=== PATIENT | female | born 1980 | race American Indian/Alaskan Native ===

== ENCOUNTER 2016-04-17 19:44 | Emergency (ER) | payer MEDICAID ==
[2016-04-17 21:42] LABS: Basophils % (Auto) 0.4 % (0.0-1.8); Eosinophils % (Auto) 0.6 % (0.0-4.3); Hematocrit 29.9 % (30.3-42.9); Hemoglobin 9.4 gm/dl (10.1-14.3); Mean Corpuscular HGB Conc 31 % (30-34); Mean Corpuscular Volume 82 fl (79-97); Platelet Count 327 K/mm3 (140-440); Red Blood Count 3.66 M/mm3 (3.65-5.03); Red Cell Distribution Width 15.9 % (13.2-15.2); White Blood Count 11.2 K/mm3 (4.5-11.0)
[2016-04-17 21:44] LABS: Mean Corpuscular Hemoglobin 26 pg (28-32)
[2016-04-18 01:28] VITALS: BP 134/76
--- NOTE | 2016-04-20 18:56 | ED Elopement Review ---
ED Pt Elopement review - Results review Lab results: Laboratory Tests 04/17/16 04/17/16 04/17/16 21:09 21:09 21:09 WBC 11.2 H RBC 3.66 Hgb 9.4 L Hct 29.9 L MCV 82 MCH 26 L MCHC 31 RDW 15.9 H Plt Count 327 Lymph % (Auto) 20.2 [place] % (Auto) 7.2 Eos % (Auto) 0.6 Baso % (Auto) 0.4 Lymph # 2.3 [place]ay # 0.8 Eos # 0.1 Baso # 0.0 Seg Neutrophils % 71.6 H Seg Neutrophils # 8.0 H HCG, Qual Negative HCG, Quant < 2 Blood Type Antibody Screen 04/17/16 21:09 WBC RBC Hgb Hct MCV MCH MCHC RDW Plt Count Lymph % (Auto) [place] % (Auto) Eos % (Auto) Baso % (Auto) Lymph # Quay # Eos # Baso # Seg Neutrophils % Seg Neutrophils # HCG, Qual HCG, Quant Blood Type A POSITIVE Antibody Screen Negative - Call Back decision Pt Call Back Decision: Pt to F/U with PMD
== END 2016-04-18 10:00 | disposition left against medical advice (07) ==
LOC: ED 19:44
DX: R12 Heartburn (principal); M54.5 Low back pain; R10.30 Lower abdominal pain, unspecified; Z53.21 Procedure and treatment not carried out due to patient leaving prior to being seen by health care provider
CPT/HCPCS: 36415; 84702; 84703; 85025; 86850; 86900; 86901